=== PATIENT | female | born 2000 | race American Indian/Alaskan Native ===

== ENCOUNTER 2021-03-14 14:29 | Emergency (ER) | payer MEDICAID ==
--- NOTE | 2021-03-14 15:15 | Emergency Department Report ---
ED Chest Pain HPI - General Chief Complaint: Dyspnea/Respdistress Stated Complaint: SHORTNESS OF BREATH Time Seen by Provider: 03/14/21 14:50 Source: patient Mode of arrival: Stretcher Limitations: No Limitations - History of Present Illness Initial Comments: This is a 20-year-old -[place] female presents to the emergency department via EMS from [place], where the patient is currently being treated for suicidal ideations and a 1013, with a complaint of some shortness of breath, midsternal chest pain and epigastric abdominal pain. Patient says that this has been going on since before she went to [facility], when she was at another hospital for a medical clearance, but says "they did not check me out." Patient was given some of her anxiety and depression medication at [facility] which she said actually helped with her abdominal pain but not the chest pain or shortness of breath. She denies any tobacco use. She occasionally will smoke marijuana. No recent travel or sick contacts at home. She denies any fever, cough, nausea, vomiting, dysuria, vaginal bleeding or discharge, lower extremity swelling. No known aggravating or alleviating factors. - Related Data Previous Rx's Medication Instructions Recorded Last Taken Type Albuterol Mdi (or & Nicu Only) 2 puff IH QID PRN #8.5 gram 03/14/21 Unknown Rx [ProAir HFA Inhaler] Ondansetron [Zofran Odt] 4 mg PO Q8HR PRN #12 tab.rapdis 03/14/21 Unknown Rx Allergies Allergy/AdvReac Type Severity Reaction Status Date / Time No Known Allergies Allergy Unverified 03/14/21 14:34 Heart Score - HEART Score History: Slightly suspicious EKG: Normal Age: < 45 Risk factors: No known risk factors Troponin: < normal limit HEART Score: 0 - EKG Read Time Time EKG Completed: 16:39 EKG Read Time: 16:42 - Critical Actions Critical Actions: 0-3 pts:0.9-1.7%risk of adverse cardiac event.Candidate for discharge ED Review of Systems ROS: Stated complaint: SHORTNESS OF BREATH Other details as noted in HPI Comment: All other systems reviewed and negative Constitutional: denies: chills, fever Eyes: denies: eye pain, vision change ENT: denies: ear pain, throat pain Respiratory: shortness of breath. denies: cough Cardiovascular: chest pain. denies: palpitations Gastrointestinal: abdominal pain. denies: nausea, vomiting Genitourinary: denies: dysuria, discharge Musculoskeletal: denies: back pain, arthralgia Skin: denies: rash, lesions Neurological: denies: headache, weakness ED Past Medical Hx - Past Medical History Previous Medical History?: Yes Hx Psychiatric Treatment: Yes - Social History Smoking Status: Never Smoker Substance Use Type: Alcohol, Marijuana - Medications Home Medications: Home Medications Medication Instructions Recorded Confirmed Last Taken Type Albuterol Mdi (or & Nicu Only) 2 puff IH QID PRN #8.5 gram 03/14/21 Unknown Rx [ProAir HFA Inhaler] Ondansetron [Zofran Odt] 4 mg PO Q8HR PRN #12 tab.rapdis 03/14/21 Unknown Rx ED Physical Exam - General Limitations: No Limitations - Other Other exam information: GENERAL: The patient is well-developed well-nourished. HENT: Normocephalic. Atraumatic. Patient has moist mucous membranes. EYES: Extraocular motions are intact. NECK: Supple. Trachea is midline. CHEST/LUNGS: Clear to auscultation. There is no respiratory distress noted. HEART/CARDIOVASCULAR: Regular. There is no tachycardia. There is no murmur. ABDOMEN: Abdomen is soft, nontender. Patient has normal bowel sounds. SKIN: Skin is warm and dry. NEURO: The patient is awake, alert, and oriented. The patient is cooperative. The patient has no focal neurologic deficits. Normal speech. MUSCULOSKELETAL: There is no tenderness or deformity. There is no limitation range of motion. ED Course Vital Signs 03/14/21 03/14/21 03/14/21 14:34 14:59 17:05 Temperature 97.7 F Pulse Rate 103 H 108 H Pulse Rate [ Bilateral Throughout] Respiratory 18 16 16 Rate Respiratory Rate [Bilateral Throughout] Blood Pressure 130/95 123/86 [Right] O2 Sat by Pulse 98 97 97 Oximetry 03/14/21 03/14/21 17:10 18:01 Temperature Pulse Rate 94 H Pulse Rate [ 68 Bilateral Throughout] Respiratory 16 Rate Respiratory 18 Rate [Bilateral Throughout] Blood Pressure 114/74 [Right] O2 Sat by Pulse 99 Oximetry PREETHI score - Preethi Score Age > 65: (0) No Aspirin use within the Past 7 Days: (0) No 3 or more CAD Risk Factors: (0) No 2 or more Angina events in past 24 hrs: (1) Yes Known CAD with more than 50% Stenosis: (0) No Elevated Cardiac Markers: (0) No ST Deviation Greater than 0.5mm: (0) No PREETHI Score: 1 ED Medical Decision Making - Lab Data Result diagrams: 03/14/21 15:17 03/14/21 15:17 Lab Results 03/14/21 03/14/21 03/14/21 Range/Units 15:17 15:17 15:17 WBC 5.4 (4.5-11.0) K/mm3 RBC 5.12 H (3.65-5.03) M/mm3 Hgb 11.0 (10.1-14.3) gm/dl Hct 34.3 (30.3-42.9) % MCV 67 L (79-97) fl MCH 22 L (28-32) pg MCHC 32 (30-34) % RDW 17.9 H (13.2-15.2) % Plt Count 167 (140-440) K/mm3 Lymph % (Auto) 12.7 L (13.4-35.0) % [place] % (Auto) 2.8 (0.0-7.3) % Eos % (Auto) 0.0 (0.0-4.3) % Baso % (Auto) 0.3 (0.0-1.8) % Lymph # (Auto) 0.7 L (1.2-5.4) K/mm3 [place] # (Auto) 0.1 (0.0-0.8) K/mm3 Eos # (Auto) 0.0 (0.0-0.4) K/mm3 Baso # (Auto) 0.0 (0.0-0.1) K/mm3 Seg Neutrophils % 84.2 H (40.0-70.0) % Seg Neutrophils # 4.5 (1.8-7.7) K/mm3 D-Dimer (0-234) ng/mlDDU Sodium 135 L (137-145) mmol/L Potassium 3.9 (3.6-5.0) mmol/L Chloride 97.1 L (98-107) mmol/L Carbon Dioxide 20 L (22-30) mmol/L Anion Gap 22 mmol/L BUN 15 (7-17) mg/dL Creatinine 0.7 (0.6-1.2) mg/dL Estimated GFR > 60 ml/min BUN/Creatinine Ratio 21 % Glucose 89 (65-100) mg/dL Calcium 9.3 (8.4-10.2) mg/dL Total Bilirubin 0.30 (0.1-1.2) mg/dL AST 23 (5-40) units/L ALT 23 (7-56) units/L Alkaline Phosphatase 72 (35-129) units/L Troponin T < 0.010 (0.00-0.029) ng/mL Total Protein 7.7 (6.3-8.2) g/dL Albumin 4.7 (3.9-5) g/dL Albumin/Globulin Ratio 1.6 % Lipase 16 (13-60) units/L HCG, Qual Negative (Negative) 03/14/21 Range/Units 19:37 WBC (4.5-11.0) K/mm3 RBC (3.65-5.03) M/mm3 Hgb (10.1-14.3) gm/dl Hct (30.3-42.9) % MCV (79-97) fl MCH (28-32) pg MCHC (30-34) % RDW (13.2-15.2) % Plt Count (140-440) K/mm3 Lymph % (Auto) (13.4-35.0) % [place] % (Auto) (0.0-7.3) % Eos % (Auto) (0.0-4.3) % Baso % (Auto) (0.0-1.8) % Lymph # (Auto) (1.2-5.4) K/mm3 [place] # (Auto) (0.0-0.8) K/mm3 Eos # (Auto) (0.0-0.4) K/mm3 Baso # (Auto) (0.0-0.1) K/mm3 Seg Neutrophils % (40.0-70.0) % Seg Neutrophils # (1.8-7.7) K/mm3 D-Dimer 227.16 (0-234) ng/mlDDU Sodium (137-145) mmol/L Potassium (3.6-5.0) mmol/L Chloride (98-107) mmol/L Carbon Dioxide (22-30) mmol/L Anion Gap mmol/L BUN (7-17) mg/dL Creatinine (0.6-1.2) mg/dL Estimated GFR ml/min BUN/Creatinine Ratio % Glucose (65-100) mg/dL Calcium (8.4-10.2) mg/dL Total Bilirubin (0.1-1.2) mg/dL AST (5-40) units/L ALT (7-56) units/L Alkaline Phosphatase (35-129) units/L Troponin T (0.00-0.029) ng/mL Total Protein (6.3-8.2) g/dL Albumin (3.9-5) g/dL Albumin/Globulin Ratio % Lipase (13-60) units/L HCG, Qual (Negative) - EKG Data -: EKG Interpreted by Me EKG shows normal: sinus rhythm, axis, intervals, QRS complexes, ST-T waves (Anteroseptal inverted T waves) Rate: normal - EKG Data When compared to previous EKG there are: previous EKG unavailable Interpretation: other (Sinus rhythm at 69 bpm, normal axis, normal intervals, anteroseptal inverted T waves. No ST elevation [place]) - Radiology Data Radiology results: image reviewed interpreted by me: Chest x-ray does not show any acute process. There are no pleural effusions, obvious pneumonia and there is no pneumothorax. - Medical Decision Making This patient presents to the emergency department with a complaint of intermittent chest discomfort, shortness of breath, and epigastric abdominal pain. She says that overall this is been going on since before she was sent to [facility] for suicidal ideations, but this worsened over the past 24 hours. On examination she has normal sounding heart and lungs to auscultation. There is some mild epigastric tenderness to palpation, but the abdomen is soft, nondistended and nontoxic in appearance. The patient does not appear in any respiratory or acute distress. EKG did not show any morphology consistent with ST elevation myocardial infarction or any dysrhythmia. Chest x-ray does not show any pneumonia, pleural effusions, pneumothorax, focal consolidation, widened mediastinum, or any other acute process. Abdominal x-ray shows nonspecific nonobstructive bowel gas. No free air. The patient's labs were unremarkable including CBC, metabolic panel, negative troponin, negative D-dimer, and the patient is not . Patient was given some IV fluid resuscitation. She was given a DuoNeb breathing treatment. The patient had one episode of vomiting while in the emergency department and was given a dose of Zofran for antiemetic. Since that time she has not had any further nausea or vomiting and has been able to pass an oral challenge. The patient is low on the heart and PREETHI score. The patient is low on the Wells score criteria and does not appear to have any risk factors for thromboembolic disease. The patient had a negative D-dimer that makes it a very low p robability that the patient could have a pulmonary embolism. Her vital signs have been reassuring throughout her ED course including being afebrile and there has been no hypoxia. For all these reasons patient appears safe for discharge back to [facility] at this time. The patient and I had a very long conversation about all of the labs and imaging, as well as EKG, that have been done and resulted as negative. We discussed that she does not appear to have any life or limb threatening emergenc y that requires a medical admission at this time. I instructed both the patient, as well as the [facility], to make sure that her vitals are checked regularly. If there is any sign of irregularity such as significant tachycardia, hypoxia, development of fever, then the patient should be returned to the closest emergency department. The patient is in agreement with this plan. Critical Care Time: No Critical care attestation.: If time is entered above; I have spent that time in minutes in the direct care of this critically ill patient, excluding procedure time. ED Disposition Clinical Impression: Intermittent chest pain, Epigastric abdominal pain, Shortness of breath Disposition: DC-01 TO HOME OR SELFCARE Is pt being admited?: No Condition: Stable Instructions: Abdominal Pain, Adult, Nonspecific Chest Pain, Adult, Shortness of Breath, Adult Additional Instructions: Please follow-up with a primary care physician in the next few days, or when you were able to do so when you are done with [facility]. Return to the emergency department with any worsening of your symptoms, new or concerning symptoms not addressed during this current emergency department v isit, or with any acute distress. Prescriptions: Albuterol Mdi (or & Nicu Only) [ProAir HFA Inhaler] 2 puff IH QID PRN #8.5 gram PRN Reason: Shortness Of Breath Ondansetron [Zofran Odt] 4 mg PO Q8HR PRN #12 tab.rapdis PRN Reason: Nausea Referrals: OLGA LOPEZ MD [Primary Care Provider] - 2-3 Days Time of Disposition: 18:36
[2021-03-14 15:38] LABS: Basophils % (Auto) 0.3 % (0.0-1.8); Hematocrit 34.3 % (30.3-42.9); Lymphocytes # (Auto) 0.7 K/mm3 (1.2-5.4); Lymphocytes % (Auto) 12.7 % (13.4-35.0); Mean Corpuscular HGB Conc 32 % (30-34); Monocytes # (Auto) 0.1 K/mm3 (0.0-0.8); Monocytes % (Auto) 2.8 % (0.0-7.3); Platelet Count 167 K/mm3 (140-440); Red Blood Count 5.12 M/mm3 (3.65-5.03); Red Cell Distribution Width 17.9 % (13.2-15.2)
[2021-03-14 15:47] LABS: Mean Corpuscular Volume 67 fl (79-97)
[2021-03-14 16:02] LABS: Alanine Aminotransferase 23 units/L (7-56); Albumin 4.7 g/dL (3.9-5); Blood Urea Nitrogen 15 mg/dL (7-17); Calcium 9.3 mg/dL (8.4-10.2); Hemolysis Index 10
[2021-03-14 16:07] LABS: BUN/Creatinine Ratio 21
[2021-03-14] MEDS ORDERED: KETOROLAC 30 MG/1 ML INJ IM ONE (16:28)
[2021-03-14] MEDS ORDERED: IPRATROPIUM/ALBUTEROL SULFATE 3 ML AMPUL.NEB IH ONE (16:28)
--- NOTE | 2021-03-14 16:47 | XRay Report ---
ACUTE ABDOMEN SERIES INDICATION / CLINICAL INFORMATION: Abd and CP. COMPARISON: None available. FINDINGS: Bowel gas pattern is nonspecific, not indicative of obstruction. No gross abnormal mass or calcificat ion. Erect view shows no free air. Accompanying chest radiograph demonstrates no acute disease. Signer Name: Hossein Smith MD Signed: 03/14/2021 4:42 PM Workstation Name: [email or web address]
[2021-03-14] MEDS ORDERED: SODIUM CHLORIDE 0.9% 1000 ML 1,000 ML IV ONE (16:51)
[2021-03-14] MEDS ORDERED: ONDANSETRON 4 MG/2 ML INJ IV ONE (16:51)
[2021-03-14] MEDS ORDERED: KETOROLAC 30 MG/1 ML INJ IV ONE (16:52)
[2021-03-15 00:24] VITALS: BP 130/80
--- NOTE | 2021-03-15 09:57 | Electrocardiograph Report ---
[facility] Test Date: 2021-03-14 Test Time: 16:39:39 Pat Name: MILAD CHAU Department: Room: Gender: F Golf Professional: HERLINDA ELIASB: 2000 Requested By: AURELIANO CASTRO Order Number: [id number] Reading MD: Morgan Engle Measurements Intervals [place] Rate: 69 P: 40 NC: 127 QRS: 60 QRSD: 91 T: 49 QT: 404 QTc: 435 Interpretive Statements Sinus rhythm Abnormal T, consider ischemia, anterior leads No previous ECG available for comparison Electronically Signed On 03-15-2021 9:56:40 EDT by Morgan Engle
== END 2021-03-15 00:25 | disposition home or self-care (01) ==
LOC: ED 14:29
DX: R10.13 Epigastric pain (principal); R06.02 Shortness of breath; R07.89 Other chest pain; F12.10 Cannabis abuse, uncomplicated; Z79.899 Other long term (current) drug therapy
CPT/HCPCS: 36415; 74022; 80053; 83690; 84484; 84703; 85025; 85379; 93005; 94640; 96361; 96374; 96375; 99284; J1885; J2405; J7030; 94644